=== PATIENT | male | born 1990 | race African-American/Black ===

== ENCOUNTER 2017-01-17 16:47 | Emergency (ER) | payer SELFPAY ==
[~2017-01-17] VITALS: Ht 177.8 cm; Wt 93.5 kg
[~2017-01-17 16:47] MED LIST: NAPR500T2 PO
[2017-01-17 16:50] VITALS: BP 138/59; PULSE 88; RESP 15; TEMP 98.4; O2SAT 97
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
--- NOTE | 2017-01-17 17:27 | RADRPT ---
EXAM DATE/TIME: 01/17/2017 17:11 [facility] COMPARISON: No previous studies available for comparison. INDICATIONS : Fever and cough. MEDICAL HISTORY : None. SURGICAL HISTORY : None. ENCOUNTER: Initial ACUITY: 2 days PAIN SCORE: 0/10 LOCATION: Bilateral chest FINDINGS: A single view of the chest demonstrates the lungs to be symmetrically aerated without evidence of mas s, infiltrate or effusion. The cardiomediastinal contours are unremarkable. Osseous structures are intact. CONCLUSION: No acute disease. Damian Villavicencio MD FACR on January 17, 2017 at 17:25 Board Certified Radiologist. This report was verified electronically.
[2017-01-17] MEDS ORDERED: PHENERGAN W CODEIN PO (17:38)
[2017-01-17] MEDS ORDERED: ZITHTAB PO (17:38)
== END 2017-01-17 17:48 | disposition home or self-care (01) ==
LOC: PHED 16:47
DX: J40 Bronchitis, not specified as acute or chronic (principal)
CPT/HCPCS: 71010; 87804; 99284

== ENCOUNTER 2017-03-31 12:30 | Emergency (ER) | payer SELFPAY ==
[~2017-03-31] VITALS: Ht 177.8 cm; Wt 89.0 kg
[~2017-03-31 12:30] MED LIST changes: -NAPR500T2 PO; +PHENERGAN W CODEIN PO; +ZITHTAB PO
[2017-03-31 12:42] VITALS: BP 133/63; PULSE 78; RESP 16; TEMP 98.4; O2SAT 98
[2017-03-31] MEDS ORDERED: OSEL75 PO (14:49)
[2017-03-31] MEDS ORDERED: ZOFR4TAB PO (14:49)
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
[2017-03-31] MEDS ORDERED: ONDANSETRON ODT 4 MG TAB PO ONE (15:00)
== END 2017-03-31 14:58 | disposition home or self-care (01) ==
LOC: PHED 12:30 → PHEFT 14:58
DX: J11.1 Influenza due to unidentified influenza virus with other respiratory manifestations (principal); R11.0 Nausea; R05 Cough
CPT/HCPCS: 99284

== ENCOUNTER 2017-07-08 20:48 | Emergency (ER) | payer SELFPAY ==
[~2017-07-08] VITALS: Ht 177.8 cm; Wt 91.4 kg
[~2017-07-08 20:48] MED LIST changes: +OSEL75 PO; +ZOFR4TAB PO
[2017-07-08 20:52] VITALS: BP 128/66; PULSE 74; RESP 18; TEMP 98.6; O2SAT 18; O2SAT 97
[2017-07-08] MEDS ORDERED: TETANUS/DIPHTHERIA TOXOID ADULT 0.5 ML VIAL IM ONE (21:15)
[2017-07-08] MEDS ORDERED: PROPARACAINE HCL 0.5% OPHT SOLN 15 ML BTL LEFT EYE ONE (21:15)
[2017-07-08] MEDS ORDERED: IBUP1TAB7 PO (21:42)
[2017-07-08] MEDS ORDERED: ERYTOIN10 LEFT EYE (21:42)
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
== END 2017-07-08 21:54 | disposition home or self-care (01) ==
LOC: PHEFT 20:48
DX: S05.02XA Injury of conjunctiva and corneal abrasion without foreign body, left eye, initial encounter (principal); Z23 Encounter for immunization; W22.8XXA Striking against or struck by other objects, initial encounter
CPT/HCPCS: 65205; 90471; 90714